=== PATIENT | female | born 1960 | race Caucasian/White ===

== ENCOUNTER 2016-04-20 10:58 | Emergency (ER) ==
[2016-04-20 11:10] VITALS: BP 117/85
--- NOTE | 2016-04-20 11:52 | PROVIDER DOCUMENTATION ---
HPI-Respiratory General - General Chief Complaint: Cough Stated Complaint: GENERAL Time Seen by Provider: 04/20/16 11:35 Source: patient Allergies/Adverse Reactions: Patient Allergies Allergy/AdvReac Type Severity Reaction Status Date / Time No Known Allergies Allergy Verified 07/18/15 15:37 Home Medications: Aspirin EC 81 mg PO DAILY 05/23/14 Cetirizine HCl [Zyrtec] 10 mg PO DAILY 05/23/14 Furosemide 20 mg PO DAILY 05/23/14 Metformin HCl 1,000 mg PO BID 05/23/14 Potassium Chloride 10 meq PO DAILY 05/23/14 Glyburide 5 mg PO DAILY 04/04/15 Sitagliptin [Januvia] 1 tab PO DAILY 04/20/16 - History of Present Illness-Resp Nature of Presenting Problem: 56 y/o WF c/o cough x 1 day. Pt states she started coughing yesterday which is productive of yellow sputum. States that her son has recently been diagnosed with bronchitis/walking PNA this week. Pt is concerned that she has the same. Has not taken any medications at this time. States fever/chills, but has not taken temp at home. Denies any other sxs. Review of Systems - Adult - REVIEW OF SYSTEMS - ADULT Constitutional: reports: see HPI, chills, fever. denies: night sweats, weight loss Eyes: reports: no symptoms reported. denies: blurred vision, double vision Ears, Nose, Mouth & Throat: reports: no symptoms reported. denies: ear pain, nose pain, throat pain Cardiovascular: reports: no symptoms reported. denies: chest pain, palpitations Respiratory: reports: see HPI, cough. denies: shortness of breath, wheezing Gastrointestinal: reports: no symptoms reported. denies: abdominal pain, nausea , vomiting Genitourinary: reports: no symptoms reported. denies: dysuria, frequency Musculoskeletal: reports: no symptoms reported. denies: joint pain, joint swelling Integumentary: reports: no symptoms reported. denies: nail changes, rash Neurological: reports: no symptoms reported. denies: numbness, paresthesia Psychiatric: reports: no symptoms reported Endocrine: reports: no symptoms reported. denies: cold intolerance, heat intolerance Hematologic/Lymphatic: reports: no symptoms reported. denies: easy bruising, prolonged bleeding Allergic/Immunologic: reports: no symptoms reported All Other Systems: Reviewed and Negative Past History - Adult - PAST MEDICAL HISTORY-ADULT Review of Records: reports: Nursing Assessment Review, Medications Reviewed Major Childhood Illnesses: reports: denies history Cardiovascular: reports: HTN Respiratory: reports: COPD Gastrointestinal: reports: denies history Obstetrical/Gynecological: reports: denies history Genitourinary: reports: denies history Musculoskeletal: reports: denies history Neurological: reports: denies history Psychiatric: reports: denies history Endocrine/Immune: reports: denies history Other Conditions: reports: denies history - PRIOR SURGERIES/PROCEDURES Surgical/Procedure History: reports: reviewed, not pertinent - PRIOR HOSPITALIZATIONS Prior Hospitalizations: reports: none - IMMUNIZATION STATUS Childhood Immunizations: See Nurse Assessment Flu Vaccine: See Nurse Assessment - FAMILY HISTORY Family History: reviewed, not pertinent - SOCIAL HISTORY Smoking: quit greater than 1 year Physical Exam-General - PHYSICAL EXAM-ADULT Initial Vital Signs Reviewed: Yes - CONSTITUTIONAL General Appearance: alert, mild distress - EYES Eyes: pink conjunctivae - HEAD, EARS, NOSE, MOUTH & THROAT HENMT: normocephalic/atraumatic, moist mucous membranes - NECK Neck: normal inspection - RESPIRATORY Respiratory: no respiratory distress, crackles, rhonchi. negative: rales, stridor, wheezing - CARDIOVASCULAR Cardiovascular: regular rate, rhythm. negative: bradycardia, tachycardia - GASTROINTESTINAL (ABDOMEN) Abdominal Exam: normal bowel sounds, non tender, soft. negative: distended, guarding, rigid, rebound - MUSCULOSKELETAL Back Exam: normal inspection Extremity: normal gait - SKIN Integumentary: normal color, normal turgor, warm/dry - NEUROLOGIC Neurologic: negative: aphasia - PSYCHIATRIC Psych/Mental Status: normal mood/affect, normal thought content, normal thought process, oriented x 3 Progress - PLAN OF CARE/RESULTS Progress/Plan/Lab Results: Orders Category Date Time Status CHEST-2 VIEWS [RAD] Stat Exams 04/20/16 11:47 Taken Vital Signs Temp Pulse Resp BP Pulse Ox 04/20/16 11:09 97.9 F 82 18 117/85 98 No Known Allergies Allergy (Verified 07/18/15 15:37) Aspirin EC 81 mg PO DAILY 05/23/14 Cetirizine HCl [Zyrtec] 10 mg PO DAILY 05/23/14 Furosemide 20 mg PO DAILY 05/23/14 Metformin HCl 1,000 mg PO BID 05/23/14 Potassium Chloride 10 meq PO DAILY 05/23/14 Glyburide 5 mg PO DAILY 04/04/15 Tramadol [Ultram] 50 mg PO Q8HR #20 tablet 07/18/15 Amoxicillin [Amoxil] 875 mg PO BID #14 tablet 04/20/16 Guaifenesin/D-Methorphan Hb/PE [Deconex Dmx Tablet] 1 each PO TID #30 tablet 08/30 Sitagliptin [Januvia] 1 tab PO DAILY 04/20/16 Discussed results and f/u with pt, including medication use. - XRAY 1 XRAY Study: Chest Impression: See EMR Report (No acute disease. Unchanged. -per Dr. Valdivia.) Departure - Departure Time of Disposition Order: 12:21 DIAGNOSIS: Bronchitis Disposition: HOME 01 Certified Medical Emergency: Emergent Condition: Stable Additional Instructions: Take medications as directed. Follow up with PCP in 3-5 days for further management. ED Follow Up Instructions: You have been treated by a care provider in the Emergency Department. These instructions are being provided to you so you can have an understanding of how to care for yourself upon discharge. Upon discharge from the Emergency Department, you are responsible for making arrangements for follow-up care by a physician of your choice. Take all prescribed medications as directed. Return to the Emergency Department immediately for any new or worsening symptoms. You may call the Physician Referral phone number at [phone] to obtain a list of Physicians who are taking new patients. Prescriptions: Amoxicillin [Amoxil] 875 mg PO BID #14 tablet Guaifenesin/D-Methorphan Hb/PE [Deconex Dmx Tablet] 1 each PO TID #30 tablet Attestation - Physician/ Mid-level Attestation Patient care was provided by Mid-level provider (BREWERY REPRESENTATIVE/PA):: Yes Mid-level provider:: Nadya Pedroza Mid-level documentation review:: The Mid-level provider documentation, treatment plan and medical decision making was reviewed by the physician who agrees with all treatment and medical decision making by the MLP.
--- NOTE | 2016-04-20 12:26 | Diag Imaging Result Document ---
PROCEDURE NAME: CHEST-2 VIEWS - 04/20/2016 CHEST X-RAY 2 VIEWS: COMPARISON: 04/15/2015. FINDINGS: Lung volumes are moderately low with some central crowding. There are numerous bilateral scattered calcified granulomas, stable from prior. No focal infiltrate. No pneumothorax or significant effusion. Heart size is normal. IMPRESSION: No change from prior.
== END 2016-04-20 12:36 | disposition home or self-care (01) ==
LOC: ED 10:58
DX: J40 Bronchitis, not specified as acute or chronic (principal); R05 Cough; R09.3 Abnormal sputum; R50.9 Fever, unspecified; I10 Essential (primary) hypertension; J44.9 Chronic obstructive pulmonary disease, unspecified; Z79.82 Long term (current) use of aspirin; Z79.899 Other long term (current) drug therapy; Z87.891 Personal history of nicotine dependence
CPT/HCPCS: 71020; 99283

== ENCOUNTER 2016-06-20 21:35 | Emergency (ER) ==
[2016-06-20] MEDS ORDERED: PERCOCET-5 PO ONE (22:50)
[2016-06-20] MEDS ORDERED: ROBAXIN PO ONE (22:50)
[2016-06-20] MEDS ORDERED: TORADOL IM ONE (22:50)
--- NOTE | 2016-06-20 22:58 | PROVIDER DOCUMENTATION ---
HPI-Musculoskeletal Pain/Inj - GENERAL Source: patient - HX OF PRESENT ILLNESS-MUSKULOSKELTAL Quality of Pain: reports: aching Severity in ED: mild Onset/Duration: this morning Timing: still present Modifying Factors: improves with: nothing Any recent injury?: No Locality of Occurance: Home Similar Symptoms Previously?: No Recently seen or treated by another doctor?: No - BACK & NECK PAIN/INJURY Back/Neck Pain Location: reports: lumbar spine Context / Method of Injury: reports: unknown Associated Symptoms: reports: denies symptoms History of Chronic Neck or Back Pain?: No <Mary Thomson - Last Filed: 06/21/16 00:31> <Dario Syed - Last Filed: 06/21/16 00:40> - GENERAL Chief Complaint: Female Stated Complaint: BACK PAIN Time Seen by Provider: 06/20/16 22:46 - HX OF PRESENT ILLNESS-MUSKULOSKELTAL Nature of Presenting Problem: 56 year old F presents to the ED with a cc of lower back pain with an onset of this morning. Pt denies injury. (Mary Thomson) Review of Systems - Adult - REVIEW OF SYSTEMS - ADULT Constitutional: denies: chills, fever Eyes: reports: no symptoms reported Ears, Nose, Mouth & Throat: reports: no symptoms reported Cardiovascular: reports: no symptoms reported Respiratory: denies: cough, shortness of breath Gastrointestinal: denies: abdominal pain, nausea, vomiting Genitourinary: denies: dysuria, hematuria Musculoskeletal: reports: back pain. denies: neck pain Integumentary: reports: no symptoms reported Neurological: reports: no symptoms reported Psychiatric: reports: no symptoms reported Endocrine: reports: no symptoms reported Hematologic/Lymphatic: reports: no symptoms reported Allergic/Immunologic: reports: no symptoms reported All Other Systems: Reviewed and Negative <Mary Thomson - Last Filed: 06/21/16 00:31> Past History - Adult - PAST MEDICAL HISTORY-ADULT Review of Records: reports: Nursing Assessment Review, Medications Reviewed Major Childhood Illnesses: reports: denies history Cardiovascular: reports: HTN Respiratory: reports: COPD Gastrointestinal: reports: denies history Obstetrical/Gynecological: reports: denies history Genitourinary: reports: denies history Musculoskeletal: reports: denies history Neurological: reports: denies history Psychiatric: reports: denies history Endocrine/Immune: reports: denies history Other Conditions: reports: denies history - PRIOR SURGERIES/PROCEDURES Surgical/Procedure History: reports: hysterectomy, orthopedic (extremity) - PRIOR HOSPITALIZATIONS Prior Hospitalizations: reports: none - IMMUNIZATION STATUS Childhood Immunizations: See Nurse Assessment Flu Vaccine: See Nurse Assessment - FAMILY HISTORY Family History: reviewed, not pertinent - SOCIAL HISTORY Smoking: quit greater than 1 year Substance Use: none/never Alcohol Use Frequency: never <Mary Thomson - Last Filed: 06/21/16 00:31> Physical Exam-Injury Related - Physical Exam-Injury Related Initial Vital Signs Reviewed: Yes General Appearance: appears well, alert, no apparent distress, obese Respiratory: chest non-tender, lungs clear, normal breath sounds Cardiovascular: normal peripheral pulses, regular rate, rhythm, no edema, systolic murmur (2/6) Abdominal Exam: normal bowel sounds, non tender, soft Back Exam: other (left paravertebral lumbar tenderness) Extremity: pedal edema (2+ bilaterally) Integumentary: normal color, warm/dry Psych/Mental Status: normal mood/affect, normal thought content, normal thought process, oriented x 3 <Mary Thomson - Last Filed: 06/21/16 00:31> Progress <Mary Thomson - Last Filed: 06/21/16 00:31> <Dario Syed - Last Filed: 06/21/16 00:40> - PLAN OF CARE/RESULTS Progress/Plan/Lab Results: plan of care: labs, medications Orders Category Date Time Status URINALYSIS PL W/POSS RFLX CULT [URINALYSIS] Stat Lab 06/20/16 23:55 Results Ketorolac [Toradol] Med 06/20/16 22:50 Discontinued 60 mg IM NOW ONE Methocarbamol [Robaxin] Med 06/20/16 22:50 Discontinued 750 mg PO NOW ONE Oxycodone/APAP 5 mg/325 mg [Percocet-5] Med 06/20/16 22:50 Discontinued 1 each PO NOW ONE Laboratory Tests 06/20/16 23:55 Urine Source CLEAN CATCH Urine Color YELLOW Urine Clarity CLEAR Urine pH 6.5 Ur Specific [place] 1.015 Urine Protein NEGATIVE Urine Ketones NEGATIVE Urine Blood NEGATIVE Urine Nitrite NEGATIVE Urine Bilirubin NEGATIVE Urine Urobilinogen 4+(12 mg/dL) Urine WBC TRACE A Urine Glucose 3+(500 mg/dL) A Vital Signs - 24 hr 06/20/16 21:49 Temperature 98 F Pulse Rate 88 Respiratory 18 Rate Blood Pressure 145/81 O2 Sat by Pulse 98 Oximetry Pt given results and will be d/c home w/ rx to follow up with PCP. Pt verbally understood instructions. PT remained clinically stable throughout the course of the ED stay and will return if symptoms worsen. (Mary Thomson) Departure <Mary Thomson - Last Filed: 06/21/16 00:31> - Departure Time of Disposition Order: 00:15 Certified Medical Emergency: Emergent <Dario Syed - Last Filed: 06/21/16 00:40> - Departure DIAGNOSIS: Poorly controlled diabetes mellitus Lumbar back pain Qualifiers: Chronicity: acute Back pain laterality: bilateral Sciatica presence: without sciatica Qualified Code(s): M54.5 - Low back pain Disposition: HOME 01 Condition: Fair Additional Instructions: HEATING PAD TO BACK if you start the JANUMET XR prescription, STOP the regular METFORMIN and JANUVIA check sugar every morning before breakfast Prescriptions: Baclofen 10 mg PO Q4-6H PRN PRN #30 tablet PRN Reason: Spasms Sitagliptin Phos/Metformin HCl [Janumet Xr 50-1,000 mg Tablet] 2 each PO QAM # 60 tbmp.24hr Naproxen Sodium [Naprelan] 500 mg PO BID PC #60 mg Tramadol [Ultram] 1 - 2 tab PO Q8H PRN PRN #30 tablet PRN Reason: Pain Referrals: Michael Romero [Primary Care Provider] - Attestation - Scribe Verification/Attestation Scribe:: Mary Thomson Acting as Scribe for:: Dario Syed Scribe documention review:: This chart was documented by a scribe and accurately reflects the service the provider performed and the decisions made by the provider. <Mary Thomson - Last Filed: 06/21/16 00:31> Physician Attestation - Physician Attestation I, the provider, attest to the following statement:: Dario Syed Physician documentation Attestation:: This documentation recorded by the scribe accurately reflects the service I personally performed and the decisions made by me. <Berto,Mary - Last Filed: 06/21/16 00:31>
[2016-06-21 00:06] LABS: URINE SOURCE CLEAN CATCH
[2016-06-21 00:21] LABS: BILIRUBIN URINE NEGATIVE (NEGATIVE); BLOOD URINE NEGATIVE (NEGATIVE); CLARITY CLEAR (CLEAR); COLOR YELLOW; LEUKOCYTES URINE TRACE (NEGATIVE); NITRITE URINE NEGATIVE (NEGATIVE); PH URINE 6.5; PROTEIN URINE NEGATIVE (NEGATIVE); SP GRAVITY URINE 1.015; UROBILINOGEN URINE 4+(12 mg/dL)
[2016-06-21 00:43] LABS: URINE CULTURE PL NEEDED? YES; URINE EPITHELIAL CELLS <10 /HPF (<10); URINE RBC <10 /HPF (<10); URINE WBC <10 /HPF (<10)
[2016-06-21 01:36] VITALS: BP 142/76
== END 2016-06-21 01:28 | disposition home or self-care (01) ==
LOC: P.ED 21:35
DX: M54.5 Low back pain (principal); E11.65 Type 2 diabetes mellitus with hyperglycemia; R60.0 Localized edema; R01.1 Cardiac murmur, unspecified; I10 Essential (primary) hypertension; J44.9 Chronic obstructive pulmonary disease, unspecified; E66.9 Obesity, unspecified
CPT/HCPCS: 81001; 87088; J1885

== ENCOUNTER 2018-09-04 12:59 | Observation (INO) ==
[2018-09-04] MEDS ORDERED: D50W SYRINGE ONE (14:16)
[2018-09-04] MEDS ORDERED: D50W SYRINGE IV ONE (14:18)
[2018-09-04] MEDS ORDERED: D5 NS 1,000 ML IV ONE (14:20)
--- NOTE | 2018-09-04 14:36 | PROVIDER DOCUMENTATION ---
HPI-Musculoskeletal Pain/Inj - GENERAL Chief Complaint: Fall Stated Complaint: FALL @ HOME TODAY Time Seen by Provider: 09/04/18 13:54 Source: patient, family () - HX OF PRESENT ILLNESS-MUSKULOSKELTAL Nature of Presenting Problem: Patient is a 58 yowf who presents with her following a fall. States she tripped over a heater and fell onto her left side. C/o left rib pain, denies head injury/LOC, neck or back pain. She presents with slurred speech. Review of Systems - Adult - REVIEW OF SYSTEMS - ADULT Constitutional: reports: no symptoms reported Eyes: reports: no symptoms reported Ears, Nose, Mouth & Throat: reports: no symptoms reported Cardiovascular: reports: no symptoms reported Respiratory: reports: no symptoms reported Gastrointestinal: reports: no symptoms reported Genitourinary: reports: no symptoms reported Musculoskeletal: reports: see HPI, other (left rib pain) Integumentary: reports: no symptoms reported Neurological: reports: no symptoms reported Psychiatric: reports: no symptoms reported Endocrine: reports: no symptoms reported Hematologic/Lymphatic: reports: no symptoms reported Allergic/Immunologic: reports: no symptoms reported All Other Systems: Reviewed and Negative Past History - Adult - PAST MEDICAL HISTORY-ADULT Review of Records: reports: Nursing Assessment Review, Medications Reviewed, Social history reviewed & non-contributory. Major Childhood Illnesses: reports: denies history Cardiovascular: reports: HTN Respiratory: reports: COPD Gastrointestinal: reports: denies history Obstetrical/Gynecological: reports: denies history Genitourinary: reports: denies history Musculoskeletal: reports: denies history Neurological: reports: denies history Psychiatric: reports: denies history Endocrine/Immune: reports: Diabetes Diabetes Type: Type 2 Diabetes controlled by:: PO Meds Other Conditions: reports: denies history - PRIOR SURGERIES/PROCEDURES Surgical/Procedure History: reports: hysterectomy, orthopedic (extremity) - PRIOR HOSPITALIZATIONS Prior Hospitalizations: reports: none - IMMUNIZATION STATUS Childhood Immunizations: See Nurse Assessment Flu Vaccine: See Nurse Assessment - FAMILY HISTORY Family History: reviewed, not pertinent - SOCIAL HISTORY Smoking: non-smoker Physical Exam-Injury Related - Physical Exam-Injury Related Initial Vital Signs Reviewed: Yes General Appearance: mild distress, lethargic (Slurred speech, answers all questions appropriately, slow to respond) Eyes: PERRL/EOMI, pink conjunctivae Head, Ears, Nose, Mouth & Throat: normocephalic/atraumatic, moist mucous membranes Neck: non-tender, full range of motion, supple, normal inspection. negative: C- spine tenderness Respiratory: lungs clear, normal breath sounds, no respiratory distress, no accessory muscle use, rib tenderness (left). negative: ecchymosis, flail chest, palpable fracture, paradoxical movements Cardiovascular: normal peripheral pulses, regular rate, rhythm, no gallop, no murmur Abdominal Exam: normal bowel sounds, non tender, soft, no organomegaly, no pulsatile mass. negative: distended, guarding, rigid, rebound, tenderness, hernia, mass Back Exam: normal inspection, no vertebral tenderness Extremity: normal range of motion, non-tender, normal inspection, normal capillary refill Integumentary: normal color, warm/dry. negative: cyanosis, diaphoresis, jaundice, mottled, pallor Neurologic: grossly normal, no motor/sensory deficits Psych/Mental Status: normal mood/affect, normal thought content, normal thought process, oriented x 3 Progress - PLAN OF CARE/RESULTS Progress/Plan/Lab Results: Vital Signs - 8 hr 09/04/18 13:08 09/04/18 14:09 09/04/18 14:11 Temperature 97.8 F Pulse Rate 88 Respiratory Rate 16 Blood Pressure 124/72 134/80 O2 Sat by Pulse Oximetry 98 94 L 97 Laboratory Results - last 24 hr 09/04/18 09/04/18 09/04/18 14:13 14:26 14:26 WBC 1.22 L RBC 3.59 L Hgb 11.1 L Hct 32.7 L MCV 91.1 MCH 30.9 MCHC 33.9 RDW Std Deviation 14.9 H Plt Count 57 L MPV 10.8 H Immature Gran % (Auto) 0.0 Neut % (Auto) 65.6 Lymph % (Auto) 24.6 [place] % (Auto) 7.4 Eos % (Auto) 1.6 Baso % (Auto) 0.8 Immature Gran # (Auto) 0.00 Neut # (Auto) 0.80 L Lymph # (Auto) 0.30 L [place] # (Auto) 0.09 L Eos # (Auto) 0.02 Baso # (Auto) 0.01 Sodium 141 Potassium 3.6 Chloride 106 Carbon Dioxide 25 Anion Gap 10 BUN 7 L Creatinine 0.6 Estimated GFR/1.73 m2 > 60 BUN/Creatinine Ratio 12 Glucose 156 H POC Glucose 20 L D Calculated Osmolality 282 Calcium 9.0 Total Bilirubin 1.95 H AST 24 ALT 9 L Alkaline Phosphatase 103 Total Protein 6.2 L Albumin 3.1 L Globulin 3.1 Albumin/Globulin Ratio 1.0 Urine Source Urine Color Urine Turbidity Urine pH Ur Specific [place] Urine Protein Ur Glucose (Stick) Ur Ketones (Stick) Urine Blood Urine Nitrite Urine Bilirubin Urobilinogen Dipstick Urine Leukocytes Urine WBC (Auto) Urine RBC (Auto) U Epithel Cells (Auto) Urine Bacteria (Auto) 09/04/18 09/04/18 14:50 15:09 WBC RBC Hgb Hct MCV MCH MCHC RDW Std Deviation Plt Count MPV Immature Gran % (Auto) Neut % (Auto) Lymph % (Auto) [place] % (Auto) Eos % (Auto) Baso % (Auto) Immature Gran # (Auto) Neut # (Auto) Lymph # (Auto) [place] # (Auto) Eos # (Auto) Baso # (Auto) Sodium Potassium Chloride Carbon Dioxide Anion Gap BUN Creatinine Estimated GFR/1.73 m2 BUN/Creatinine Ratio Glucose POC Glucose 72 D Calculated Osmolality Calcium Total Bilirubin AST ALT Alkaline Phosphatase Total Protein Albumin Globulin Albumin/Globulin Ratio Urine Source CLEAN CATCH Urine Color YELLOW Urine Turbidity CLEAR Urine pH 6.5 Ur Specific [place] 1.012 Urine Protein TRACE A Ur Glucose (Stick) TRACE Ur Ketones (Stick) NEGATIVE Urine Blood MODERATE A Urine Nitrite NEGATIVE Urine Bilirubin NEGATIVE Urobilinogen Dipstick 6 A Urine Leukocytes NEGATIVE Urine WBC (Auto) <10 Urine RBC (Auto) TNTC A U Epithel Cells (Auto) <10 Urine Bacteria (Auto) 2+ Orders Category Date Time Status RIBS UNILAT W/PA CHEST LEFT [RAD] Stat Exams 09/04/18 14:20 Completed CBC WITH DIFF [HEME] Stat Lab 09/04/18 14:26 Completed COMPREHENSIVE METABOLIC PANEL [CHEM] Stat Lab 09/04/18 14:26 Completed UA NIMS W/REFLEX CULT [URINALYSIS] Stat Lab 09/04/18 14:50 Completed Dextrose 5%-0.9% NaCl Inj [D5 Ns] 1,000 ml Med 09/04/18 14:20 Active IV 100 mls/hr Dextrose 50% Syringe [D50w Syringe] Med 09/04/18 14:16 Discontinued 50 ml .ROUTE .STK-MED ONE Dextrose 50% Syringe [D50w Syringe] Med 09/04/18 14:18 Discontinued 50 ml IV NOW ONE EKG [EKG] Stat Ther 09/04/18 14:32 Ordered Pt now a&ox4, no slurred speech is noted. Pt in agreement with admission plan. Result Diagrams: 09/04/18 14:26 09/04/18 14:26 - XRAY 1 XRAY: Left XRAY Study: Chest (IMPRESSION: No injury. Electronically signed by Yuri Rain 09/04/2018 3:09 PM), Ribs - CONSULTS/PCP/HOSPITALIST Notification #1 *Consult/PCP/Hospitalist*: Dr. Ruiz Time Discussed: 15:42 Reason/Comments: hypoglycemia Consult Disposition: Admit Departure - Departure Date of Disposition Decision: 09/04/18 Time of Disposition Decision: 15:42 DIAGNOSIS: Hypoglycemia Disposition: ADMITTED INPATIENT 09 Certified Medical Emergency: Emergent Condition: Serious Referrals and Follow-Ups: Michael Romero [Primary Care Provider] - - Critical Care Note This patient required my direct & personal management of CC.: No Attestation - Physician/ MARY Attestation Patient care was provided by Advanced Practice Provider:: Yes Advanced Practice Provider:: Darryl Gallegos Advanced Practice Provider documentation review:: The Mid-level provider documentation, treatment plan and medical decision making was reviewed by the physician who agrees with all treatment and medical decision making by the MLP. The physician spent face to face time with patient:: No Advanced Practice Provider documentation review:: Supervising physician onsite and consulted in the evaluation and care of this patient. The physician did not have a face to face encounter with the patient.
[2018-09-04 14:53] LABS: BASO# 0.01 X1000 (0.0-0.2); BASO% 0.8 % (0.0-0.8); EOS# 0.02 X1000 (0.0-0.7); EOS% 1.6 % (0.0-10.0); HEMATOCRIT 32.7 % (37.0-47.0); HEMOGLOBIN 11.1 g/dL (12.0-16.0); LYMPH% 24.6 % (20.5-51.1); MCH 30.9 PG (27-31); MCHC 33.9 g/dL (33-37); MCV 91.1 FL (81-99); MONO# 0.09 X1000 (0.11-0.59); MONO% 7.4 % (1.7-9.3); MPV 10.8 FL (7.4-10.4); NEUT% 65.6 % (42.2-75.2); PLT 57 X1000 (130-400); RBC 3.59 XMIL (4.2-5.4); RDW 14.9 % (11.5-14.5); WBC 1.22 X1000 (4.8-10.8)
[2018-09-04 15:01] LABS: URINE SOURCE CLEAN CATCH
[2018-09-04 15:08] LABS: AGAP 10; ALBUMIN 3.1 g/dL (3.5-5.0); ALKALINE PHOSPHATASE 103 U/L (32-104); BUN 7 mg/dL (8-22); CHLORIDE 106 mmol/L (98-107); COSMO 282; CREATININE 0.6 mg/dL (0.5-0.9); ESTIMATED GFR > 60; GLUCOSE 156 mg/dL (70-104); GOT 24 U/L (10-30); GPT 9 U/L (10-36); POTASSIUM 3.6 mmol/L (3.5-5.1); SODIUM 141 mmol/L (136-145); TCO2 25 mmol/L (25-35); TOTAL BILIRUBIN 1.95 mg/dL (0.20-1.00); TOTAL PROTEIN 6.2 g/dL (6.3-8.3)
--- NOTE | 2018-09-04 15:11 | Diag Imaging Result Doc PS360 ---
EXAM: RIBS UNILAT W/PA CHEST LEFT HISTORY: fall, left rib pain TECHNIQUE: Chest and left rib detail, five views COMPARISON: None. FINDINGS: Poor inspiratory effort. No contusion or pneumothorax. No displaced fracture or pleural effusion identified. IMPRESSION: No injury. Electronically signed by Yuri Rain 09/04/2018 3:09 PM
[2018-09-04 15:18] LABS: BILIRUBIN URINE NEGATIVE (NEGATIVE); BLOOD URINE MODERATE (NEGATIVE); COLOR YELLOW; GLUCOSE URINE TRACE mg/dL (NEGATIVE); KETONE URINE NEGATIVE (NEGATIVE); LEUKOCYTES URINE NEGATIVE (NEGATIVE); NITRITE URINE NEGATIVE (NEGATIVE); PH URINE 6.5; PROTEIN URINE TRACE mg/dL (NEGATIVE); SP GRAVITY URINE 1.012; TURBIDITY URINE CLEAR (CLEAR); UROBILINOGEN URINE 6 mg/dL (NORMAL)
[2018-09-04 15:20] LABS: UR EPITHELIAL CELLS <10 /HPF (<10); URINE BACTERIA 2+ /HPF; URINE RBC TNTC /HPF (<10); URINE WBC <10 /HPF (<10)
--- NOTE | 2018-09-04 16:03 | EKG Report ---
Test Performed on : 09/04/2018 3:49:03 PM Test Reason : LOW BLOOD SUGAR Blood Pressure : / mmHG Vent. Rate : 073 BPM Atrial Rate : 073 BPM P-R Int : 202 ms QRS Dur : 096 ms QT Int : 414 ms P-R-T Axes : 027 -24 -23 degrees QTc Int : 456 ms Sinus rhythm. with premature ventricular complexes. or fusion complexes Low voltage QRS Possible Anterolateral infarct (cited on or before 19-DEC-2017) Abnormal ECG When compared with ECG of 08-MAY-2018 08:46, Significant changes have occurred Unconfirmed Result
[2018-09-04 16:29] LABS: LYMPHS 14 % (21-51); MONO 6 % (1-9); SEGS 78 % (42-75)
[2018-09-04] MEDS ORDERED: D50W SYRINGE IV PRN (16:29)
[2018-09-04 16:30] LABS: LARGE PLATELETS OCCASIONAL
[2018-09-04] MEDS ORDERED: TYLENOL PO PRN (16:34)
[2018-09-04] MEDS ORDERED: ZOFRAN IV PRN (16:34)
--- NOTE | 2018-09-04 18:29 | HISTORY AND PHYSICAL ---
PRIMARY CARE PROVIDER: Dr. Romero. ONCOLOGIST/DRUM DRIER OPERATOR: Dr. Herrera. HISTORY OF PRESENT ILLNESS: Ms. Carrol Mckay is a 58-year-old female with a medical history of morbid obesity, diabetes mellitus type 2, leukopenia, neutropenia, and thrombocytopenia with no obvious diagnosis according to the family, and also a history of hyperlipidemia and COPD. She states that she had 3 boiled eggs today, and then around 11:30 or 12 she tripped over the [employer] heater. When her arrived around that time, he states that she was confused and lethargic, so he brought her here, where she was found to have a low blood glucose level. She did have complaints of left rib pain, but imaging ruled out any fractures. She was given dextrose and started on a drip. Will admit overnight. Will do a regular diet for now. She also complains of having 6-udzky-n-day watery stools for at least a week, so we will do cultures on that. PAST MEDICAL HISTORY: 1. Diabetes mellitus type 2, on oral diabetic medications. 2. 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 3. Thrombocytopenia. 4. Hypertension. 5. Hyperlipidemia. 6. Seasonal allergies. 7. COPD. 8. Morbid obesity with a BMI of 39.5. PAST SURGICAL HISTORY: 1. Hysterectomy. 2. Colonoscopy in 2016. SOCIAL HISTORY: Quit smoking in 2018. Prior to that, smoked a half pack per day for 3 years. Denies alcohol or illicit drug use. She lives at home with her . FAMILY HISTORY: Mother and father both have diabetes. No other history that is known. ALLERGIES: No known drug allergies. HOME MEDICATIONS: Not reconciled yet. PHYSICAL EXAMINATION: VITAL SIGNS: Temperature 97.8, heart rate 68, respiratory rate 20, blood pressure 134/80, 02 saturation 100%. She is 5 feet 4 inches tall and weighs 230 pounds. BMI 39.5. GENERAL: Ms. Carrol Mckay is a 58-year-old female. She is in no acute distress. She is answering questions appropriately. HEENT: Atraumatic, normocephalic. Pupils equal, round, and reactive to light. Extraocular movements intact. Mucous membranes are dry. NECK: Trachea midline. CARDIOVASCULAR: S1 and S2, regular rate and rhythm. No rubs, gallops, or murmurs. Trace lower extremity edema, +2 dorsalis pedis and radial pulses. Negative for JVD or carotid bruits. PULMONARY: Clear to auscultate. Bilateral breath sounds. No accessory muscle use or work of breathing noted. GI: Soft, nontender, nondistended. Positive bowel sounds x4. EXTREMITIES: Moves all extremities, but decreased range of motion of the lower extremities. NEUROLOGIC: A O x3. Follows commands. Sensory is intact. SKIN: Warm, dry and intact. Left rib cage area: No bruising at this time. LABORATORY DATA: White blood cells 1000 with a neutrophil total of 0.80, hemoglobin 11, hematocrit 32, platelet count 57. Sodium 141, potassium 3.6, BUN 7, creatinine 0.6, glucose 156. Calcium 9.0, bilirubin 1.95. AST 24, ALT 9, albumin 3.1. Urinalysis: Trace protein, moderate blood, fjn-nxagzzlz-xo-count red blood cells, 2+ bacteria. IMAGING: Chest x-ray including the ribs: No injury. EKG: Normal sinus rhythm, rate 73, QTc 456. ASSESSMENT/PLAN: 1. Mechanical fall, no injury at this time. It was likely secondary to her hypoglycemia. 2. Diabetes mellitus type 2 with symptomatic hypoglycemia requiring dextrose push, and will continue her on D5 normal saline at 100 mL/hr. Will do as-needed dextrose pushes and every-4- hour glucose levels. I will put her on a regular diet for now. Once her blood glucose levels stabilize and the oral medication she takes at home is out of her system, we will resume her on a diabetic diet, and will check a hemoglobin A1c in the morning. 3. 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 Dr. Herrera follows her about every 3 months. Family says there is no primary diagnosis for this, so we will consult Dr. Herrera. 4. Diarrhea. Will get stool studies. 5. Hypertension, waiting for home medications to be verified. 6. Hyperlipidemia. 7. Chronic obstructive pulmonary disease, no exacerbation. Dictated by AIDEN Thornton for Nghia Marlow MD Addendum: Patient seen and examined by myself. Agree with AIDEN note. It reflects my assessment and plan. Patient is being admitted to hospital for observation for hypoglycemia. Will start D5NS and will check accuchecks every four hours. Will check HbA1c as well. cc: AIDEN Thornton MD MTDD
[2018-09-05 06:56] LABS: INR 1.35; PROTIME 17.7 Seconds (11.0-16.0)
[2018-09-05 06:57] LABS: PTT 39.8 Seconds (22.3-41.8)
[2018-09-05 06:59] LABS: BASO# 0.02 X1000 (0.0-0.2); BASO% 1.2 % (0.0-0.8); EOS# 0.03 X1000 (0.0-0.7); EOS% 1.8 % (0.0-10.0); HEMATOCRIT 32.9 % (37.0-47.0); HEMOGLOBIN 11.2 g/dL (12.0-16.0); LYMPH# 0.53 X1000 (1.2-3.4); LYMPH% 32.5 % (20.5-51.1); MCH 31.1 PG (27-31); MCV 91.4 FL (81-99); MONO# 0.19 X1000 (0.11-0.59); MONO% 11.7 % (1.7-9.3); NEUT# 0.86 X1000 (1.4-6.5); NEUT% 52.8 % (42.2-75.2); PLT 64 X1000 (130-400); RDW 15.1 % (11.5-14.5); WBC 1.63 X1000 (4.8-10.8)
[2018-09-05 07:08] LABS: HEMOGLOBIN A1C 4.3 % (4.8-6.0)
[2018-09-05 07:19] LABS: AGAP 6; ALB/GLOB RATIO 0.9; ALBUMIN 2.7 g/dL (3.5-5.0); ALKALINE PHOSPHATASE 92 U/L (32-104); BUN 5 mg/dL (8-22); CALCIUM 8.7 mg/dL (8.8-10.2); CHLORIDE 107 mmol/L (98-107); COSMO 278; CREATININE 0.6 mg/dL (0.5-0.9); ESTIMATED GFR > 60; GLUCOSE 127 mg/dL (70-104); GOT 21 U/L (10-30); GPT 8 U/L (10-36); MAGNESIUM 2.1 mg/dL (1.5-2.7); SODIUM 140 mmol/L (136-145); TCO2 27 mmol/L (25-35); TOTAL BILIRUBIN 1.66 mg/dL (0.20-1.00); TOTAL PROTEIN 5.7 g/dL (6.3-8.3)
--- NOTE | 2018-09-05 07:19 | EKG Report ---
Test Performed on : 09/04/2018 5:43:32 PM Test Reason : IRREGULAR HEART BEAT Blood Pressure : / mmHG Vent. Rate : 076 BPM Atrial Rate : 076 BPM P-R Int : 196 ms QRS Dur : 096 ms QT Int : 432 ms P-R-T Axes : 039 -25 -26 degrees QTc Int : 486 ms Normal sinus rhythm. Low voltage QRS Possible Anterolateral infarct (cited on or before 19-DEC-2017) Abnormal ECG When compared with ECG of 04-SEP-2018 15:49, (Unconfirmed) fusion complexes are no longer present premature ventricular complexes. are no longer present Questionable change in initial forces of Lateral leads Unconfirmed Result
[2018-09-05 07:57] VITALS: BP 103/64
--- NOTE | 2018-09-05 10:21 | DISCHARGE SUMMARY ---
ADMISSION DATE: 09/04/2018 DISCHARGE DATE: 09/05/2018 DISCHARGE DIAGNOSES: 1. Diabetes mellitus type 2 with symptomatic hypoglycemia, resolved. 2. Leukopenia, neutropenia, and lymphopenia, along with thrombocytopenia, stable. 3. Diarrhea, resolved. 4. Hypertension. 5. Hyperlipidemia. 6. Chronic obstructive pulmonary disease. CONSULTATIONS: None. PROCEDURES: Rib with chest x-ray showed no injury. HOSPITAL COURSE: This is a 58-year-old, female with a past medical history of morbid obesity, diabetes mellitus type 2, leukopenia, neutropenia, thrombocytopenia under workup, and who presented to the emergency department because she had a fall. She was found out to have low blood sugar levels so she was brought to the emergency department. Basically, she was admitted for observation for hypoglycemia. She was on metformin, Januvia, and glipizide. We have checked her hemoglobin A1c and that is 4.3. I think this patient is much more stable. She was eating okay. No more episodes of diarrhea. I think we are going to stop all diabetes medications and we will let the primary care doctor to restart those slowly because I do not think she needs them, considering this is very low hemoglobin A1c. Regarding leukopenia, anemia, and thrombocytopenia, the patient is being seen by Dr. Herrera in the office. I think she needs to continue her workup with him in the office as well. The patient is going to be discharged in stable condition. DISCHARGE PHYSICAL EXAMINATION: Vital Signs: Temperature 98.5 degrees, heart rate 66, respiratory rate 18, blood pressure 103/64, O2 saturation 96% on room air. General Examination: This is a 58-year-old, female lying in bed, in no acute distress. Cardiovascular Examination: S1 and S2 heard. No murmurs, gallops, or rubs. Regular rate and rhythm. Respiratory Examination: Clear bilaterally to auscultation. No work of breathing or using accessory muscles. Abdomen: Soft, nontender to palpation. Bowel sounds present. No organomegaly. Extremities: No clubbing, cyanosis, or edema. Peripheral pulses present in both legs. Neurological Examination: The patient is alert and oriented x3. Moves 4 extremities. DISCHARGE DISPOSITION: Home to self-care. LIST OF MEDICATIONS: 1. Lasix 20 mg 1 tablet p.o. daily. 2. Aspirin 81 mg 1 tablet p.o. daily. 3. Potassium chloride 10 mEq 1 tablet p.o. daily. 4. Simvastatin 20 mg 1 tablet p.o. at bedtime. 5. Lisinopril 2.5 mg 1 tablet p.o. daily. 6. Levocetirizine 5 mg 1 tablet p.o. daily. FOLLOWUP: Follow up with her primary care physician, Dr. Michael Romero, in a week. cc: Nghia Marlow MD
--- NOTE | 2018-09-06 19:49 | HEMO/ONC CONSULTATION ---
DATE: 09/05/2018 ADMITTING PHYSICIAN: Dr. Ruiz. REQUESTING PHYSICIAN: Dr. Ruiz. We appreciate this consult. CHIEF COMPLAINT: Thrombocytopenia with splenomegaly. HISTORY OF PRESENT ILLNESS: Ms Mckay is a very pleasant 58-year-old female well known to Dr. Herrera with a history of thrombocytopenia with splenomegaly secondary to portal hypertension. The patient has been followed in clinic. Additionally the patient is known to have leukocytopenia of ethnic or familial origin. She has had a bone marrow biopsy in the past which was negative. Workup had been negative. The patient also has MGUS. Monoclonal spike has been stable at 400 in recent months. The patient is followed regularly in clinic for review of laboratory data. The patient presented to [facility] on the day of admission secondary to a fall. On presentation to [facility] the patient was confused and lethargic. Review of CBC and CMP revealed hypoglycemia. On admission the patient was found to be leukopenic secondary to neutropenia as well as thrombocytopenic. We are consulted for the same. PAST MEDICAL HISTORY: 1. 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 2. Thrombocytopenia with splenomegaly. 3. MGUS. 4. Diabetes mellitus type 2. 5. Hypertension. 6. Hyperlipidemia. 7. COPD. 8. Morbid obesity. 9. Seasonal allergies. PAST SURGICAL HISTORY: Hysterectomy. SOCIAL HISTORY: The patient quit smoking in 2018. She does not use alcohol or illicit drugs. FAMILY HISTORY: Negative for any hematologic or oncologic disease. MEDICATIONS ON ADMISSION: 1. Metformin. 2. Furosemide. 3. Aspirin 81 mg. 4. Potassium chloride. 5. Simvastatin. 6. Sitagliptin phosphate. 7. Glipizide. 8. Lisinopril. 9. Levocetirizine dihydrochloride. ALLERGIES: The patient has no known drug allergies. REVIEW OF SYSTEMS: A 14 point review of systems was obtained and is negative except as mentioned in HPI. PHYSICAL EXAM: Ms. Mckay is a 58-year-old female lying supine in bed in no immediate distress.Vital Signs: Temperature 98.5 degrees, blood pressure 103/64, heart rate 66, respirations 18, O2 saturation 92% on room air. HEENT: Normocephalic, atraumatic. Mucous membranes are slightly pale and moist. Sclerae anicteric. Extraocular movements intact. Neck: Supple. Lungs: Clear to auscultation bilaterally. Chest expansion is equal bilaterally. CV: S1, S2 is heard. No murmurs, rubs or gallops. Abdomen: Nondistended. Extremities: No clubbing, cyanosis, or edema. Dermatologic: No rashes, bruises or lesions. Neuro: The patient is awake, alert, and oriented x3, no focal deficit. LABORATORY DATA: Hemoglobin 11.2, hematocrit 32.9, white blood cell count 1.63, platelet count 64,000. ANC is 860, INR is 1.35, sodium 140, potassium 4.0, chloride 107, CO2 is 27, BUN 5, creatinine 0.6 and glucose is 127, calcium is 8.7, magnesium 2.1, bilirubin 1.66, alkaline phosphatase 92, ALT 8, AST 21. Urinalysis is positive for urinary tract infection. IMAGING STUDIES: Chest x-ray with ribs reveals no injury. ASSESSMENT AND PLAN: 1. Thrombocytopenia with splenomegaly secondary to portal hypertension known with negative workup in the past. Followup is scheduled for clinic. 2. Leukocytopenia ethnic or familial, bone marrow biopsy in the past has been negative. 3. Monoclonal gammopathy of unknown significance, monoclonal spike has been stable at 400. We will continue to monitor in clinic in the future. 4. Fall without injury, workup is pending. 5. Diabetes mellitus type 2 stable. 6. Chronic obstructive pulmonary disease without exacerbation. 7. Hypertension and hyperlipidemia. Would continue medications as ordered. 8. We will follow along with you and make further recommendations pending outcomes. The above reflects the history, exam, assessment and plan of Dr. Herrera. Dictated by AIDEN Clark for Alvaro Herrera MD cc: AIDEN Clark MD
== END 2018-09-05 14:01 | disposition home or self-care (01) ==
LOC: ED 12:59 → EDIPHOLD 12:59 → 4N 20:15
PROVIDERS: ATTEND Internal Medicine
CPT/HCPCS: 71101; 80053; 81001; 82948; 83036; 83735; 84443; 85025; 85610; 85730; 87088; 93005; 96365; 96366; 96375; 99285; J7042; XXXXX